=== PATIENT | female | born 1990 | race African-American/Black ===

== ENCOUNTER 2016-08-01 10:03 | Emergency (ER) | payer MEDICAID ==
[~2016-08-01] VITALS: Ht 152.4 cm; Wt 75.7 kg
--- NOTE | 2016-08-01 10:40 | Emergency Room Report ---
History of Present Illness General Chief Complaint: Complications Source: Patient Present Illness HPI Patient presents with complaints of abdominal cramping Vaginal spotting Patient reports being approximately 14 weeks Reports that symptoms have been ongoing for the past several days now Patient had increased vomiting and diarrhea as well Patient is Denies any dysuria frequency she has also developed a mild headache Allergies: Coded Allergies: No Known Allergies (Unverified , 08/01/16) Patient History Past Medical History: see triage record Pertinent Family History: none Now: Yes : 5 Para: 1 Reviewed Nursing Documentation: PMH: Agreed, PSxH: Agreed Nursing Documentation-PMH Past Medical History: No Stated History Review of Systems All Other Systems: negative except mentioned in HPI Physical Exam Vital Signs Date Time Temp Pulse Resp B/P Pulse Ox O2 Delivery O2 Flow Rate FiO2 08/01/16 10:14 98.1 85 12 107/57 100 Sp02 EP Interpretation: reviewed, normal General Appearance: well appearing, no apparent distress Head: normocephalic, atraumatic Eyes: bilateral eye EOMI, bilateral eye PERRL ENT: hearing grossly normal, normal pharynx, TMs + canals normal, uvula midline Neck: full range of motion, supple, no meningismus, no bony tend Respiratory: lungs clear, normal breath sounds, no rhonchi, no respiratory distress, no retraction, no accessory muscle use Cardiovascular #1: normal peripheral pulses, regular rate, rhythm, no edema, no gallop, no JVD, no murmur Gastrointestinal: normal bowel sounds, non tender, soft, no mass, no organomegaly, no guarding, no hernia, no pulsatile mass, no rebound, other - abdomen Genitourinary: no CVA tenderness Musculoskeletal: normal inspection Neurologic: oriented x3, responsive, it analyst III-XII nml as tested, motor strength/ tone normal, sensory intact Psychiatric: mood/affect normal Skin: normal color, no rash, warm/dry, palpation normal Lymphatic: normal inspection, no adenopathy Medical Decision Making Diagnostic Impression: Primary Impression: UTI in Additional Impression: Abdominal pain affecting ER Course Multiple differentials considered including but not limited to threatened miscarriage, appendicitis, ovarian torsion Patient's ultrasound reveals appropriate Urine sample did show infectious pathology patient has done better with further hydration and anti-emetics and stable for close outpatient followup Labs Test 08/01/16 11:50 White Blood Count 9.7 K/UL (4.8-10.8) Red Blood Count 4.23 M/UL (4.20-5.40) Hemoglobin 12.7 G/DL (12.0-16.0) Hematocrit 39.0 % (37.0-47.0) Mean Corpuscular Volume 92 FL (80-99) Mean Corpuscular Hemoglobin 29.9 PG (27.0-31.0) Mean Corpuscular Hemoglobin Concent 32.5 G/DL (32.0-36.0) Red Cell Distribution Width 11.9 % (11.6-14.8) Platelet Count 328 K/UL (150-450) Mean Platelet Volume 6.6 FL (6.5-10.1) Neutrophils (%) (Auto) 74.0 % (45.0-75.0) Lymphocytes (%) (Auto) 17.9 % (20.0-45.0) Monocytes (%) (Auto) 7.0 % (1.0-10.0) Eosinophils (%) (Auto) 0.6 % (0.0-3.0) Basophils (%) (Auto) 0.6 % (0.0-2.0) Urine Color Pale yellow Urine Appearance Slightly cloudy Urine pH 8 (4.5-8.0) Urine Specific Whitman 1.010 (1.005-1.035) Urine Protein Negative (NEGATIVE) Urine Glucose (UA) Negative (NEGATIVE) Urine Ketones Negative (NEGATIVE) Urine Occult Blood Negative (NEGATIVE) Urine Nitrite Negative (NEGATIVE) Urine Bilirubin Negative (NEGATIVE) Urine Urobilinogen Normal MG/DL (0.0-1.0) Urine Leukocyte Esterase 3+ (NEGATIVE) Urine RBC 0-2 /HPF (0 - 2) Urine WBC 5-10 /HPF (0 - 2) Urine Squamous Epithelial Cells Many /LPF (NONE/OCC) Urine Bacteria Moderate /HPF (NONE) Urine Trichomonas Occasional /HPF (NONE) Sodium Level 137 mEQ/L (135-145) Potassium Level 3.9 mEQ/L (3.4-4.9) Chloride Level 101 mEQ/L (98-107) Carbon Dioxide Level 22 mEQ/L (20-30) Anion Gap 14 (5-15) Blood Urea Nitrogen 6 mg/dL (7-23) Creatinine 0.6 mg/dL (0.5-0.9) Estimat Glomerular Filtration Rate > 60 mL/min (>60) Glucose Level 79 mg/dL (74-106) Calcium Level 9.0 mg/dL (8.6-10.2) Total Bilirubin < 0.2 mg/dL (0.0-1.2) Aspartate Amino Transf (AST/SGOT) 20 U/L (5-40) Alanine Aminotransferase (ALT/SGPT) 24 U/L (3-33) Alkaline Phosphatase 46 U/L (35-104) Total Protein 6.9 g/dL (6.6-8.7) Albumin 3.6 g/dL (3.5-5.2) Globulin 3.3 g/dL Albumin/Globulin Ratio 1.0 (1.0-2.7) Lipase 17 U/L (< 60) Human Chorionic Gonadotropin, Quant 89195 mIU/mL CT/MRI/US Diagnostic Results CT/MRI/US Diagnostic Results : Impression pelvic ultrasoundImpression: 15 week 6 day estimated gestational age by average ultrasound measurements, single live intrauterine . No unusual features. Note, however, that due to the very early stage of , survey of anatomy is limited Last Vital Signs Date Time Temp Pulse Resp B/P Pulse Ox O2 Delivery O2 Flow Rate FiO2 08/01/16 10:14 98.1 85 12 107/57 100 Status: improved Disposition: HOME, SELF-CARE Condition: Improved Scripts Nitrofurantoin Monohyd/M-Cryst* (MACROBID 100 MG*) 100 Mg Capsule 100 MG ORAL EVERY 12 HOURS, #14 CAP Prov: ADEEL PLUMMER D.O. 08/01/16 Additional Instructions: Patient is provided with the discharge instructions notified to follow up with primary doctor in the next 2-3 days otherwise return to the er with any worsening symptoms. Please note that this report is being documented using DRAGON technology. This can lead to erroneous entry secondary to incorrect interpretation by the dictating instrument. ADEEL PLUMMER D.O. Aug 01, 2016 10:40
[2016-08-01] MEDS ORDERED: Metoclopramide 10mg/2ml Inj IVP ONE (10:45)
[2016-08-01 11:59] LABS: BASOPHILS % (AUTO) 0.6 % (0.0-2.0); EOSINOPHILS % (AUTO) 0.6 % (0.0-3.0); LYMPHOCYTES % (AUTO) 17.9 % (20.0-45.0); MEAN CORPUSCULAR HEMOGLOBIN 29.9 PG (27.0-31.0); MEAN CORPUSCULAR HGB CONC 32.5 G/DL (32.0-36.0); MEAN CORPUSCULAR VOLUME 92 FL (80-99); MEAN PLATELET VOLUME 6.6 FL (6.5-10.1); PLATELET COUNT 328 K/UL (150-450); RED BLOOD COUNT 4.23 M/UL (4.20-5.40); RED CELL DISTRIBUTION WIDTH 11.9 % (11.6-14.8); WHITE BLOOD COUNT 9.7 K/UL (4.8-10.8)
[2016-08-01 12:00] LABS: APPEARANCE,URINE SLIGHTLY CLOUDY; KETONES,URINE NEGATIVE (NEGATIVE); LEUKOCYTE ESTERASE ,URINE 3+ (NEGATIVE); NITRITE,URINE NEGATIVE (NEGATIVE); PH,URINE 8 (4.5-8.0); PROTEIN,URINE NEGATIVE (NEGATIVE); UROBILINOGEN,URINE NORMAL MG/DL (0.0-1.0)
[2016-08-01 12:15] LABS: BACTERIA,URINE MODERATE /HPF; RBC,URINE 0-2 /HPF (0 - 2); SQUAMOUS EPITHELIAL CELL,UR MANY /LPF (NONE/OCC)
[2016-08-01 12:16] LABS: TRICHOMONAS,URINE OCCASIONAL /HPF
[2016-08-01 12:18] LABS: ALANINE AMINOTRANSFERASE 24 U/L (3-33); ANION GAP 14 (5-15); ASPARTATE AMINO TRANSFERASE 20 U/L (5-40); CARBON DIOXIDE 22 mEQ/L (20-30); CHLORIDE 101 mEQ/L (98-107); CREATININE 0.6 mg/dL (0.5-0.9); GLOMERULAR FILTRATION RATE > 60 mL/min (>60); HEMOLYSIS 8; LIPASE 17 U/L (< 60); POTASSIUM 3.9 mEQ/L (3.4-4.9); SODIUM 137 mEQ/L (135-145); TOTAL PROTEIN 6.9 g/dL (6.6-8.7)
[2016-08-01] MEDS ORDERED: NITROFURANTOIN100 M2 ORAL (13:06)
[2016-08-01 13:20] VITALS: BP 107/57
--- NOTE | 2016-08-01 16:30 | Diagnostic Imaging Report ---
Indication: Pelvic pain, vaginal bleeding and spotting, patient Technique: Transabdominal images of the uterus Comparison: None Findings: There is single live intrauterine . Presentation is breech. There is positive heart activity, heart 144 beats per minute. There is anterior fundal placenta which clears the internal cervical os. The cervical canal is closed, measures 41 millimeters in length. There is normal amniotic fluid volume. Average of ultrasound measurements yields an estimated gestational age of 15 weeks 6 days. This is in concordance with the estimated gestational age by dates, also 15 weeks 6 days. Estimated date of delivery is 01/17/2017. Limited survey of anatomy demonstrates normal four-chamber heart, normal spine, ventricles, three-vessel cord, stomach. The kidneys and urinary bladder could not be demonstrated Impression: 15 week 6 day estimated gestational age by average ultrasound measurements, single live intrauterine . No unusual features. Note, however, that due to the very early stage of , survey of anatomy is limited
== END 2016-08-01 13:20 | disposition home or self-care (01) ==
LOC: EMR 11:21
DX: O23.42 Unspecified infection of urinary tract in pregnancy, second trimester (principal); Z3A.15 15 weeks gestation of pregnancy; R11.10 Vomiting, unspecified; R19.7 Diarrhea, unspecified
CPT/HCPCS: 36415; 76805; 80053; 81003; 83690; 84702; 85025; 87086; 96374; 96375; 99284; J2765